=== PATIENT | female | born 1985 | race Caucasian/White ===

== ENCOUNTER 2016-11-30 12:01 | Inpatient (IN) | payer OTHER ==
[2016-11-28 14:35] LABS: HCT 44.9 % (37.0-47.0); HGB 14.7 g/dl (12.5-16.0); MCH 28.1 pg (25.0-31.0); MCHC 32.7 g/dL (32.0-36.0); MCV 85.7 fL (78.0-100.0); MPV 10.1 fL (6.0-9.5); RBC 5.24 M/uL (4.20-5.40); RDW 18.7 % (11.5-14.0); WBC 4.9 K/uL (4.0-10.5)
[2016-11-28 15:27] LABS: CREATININE 0.9 mg/dL (0.5-1.0); POTASSIUM 4.5 mmol/L (3.5-5.1)
[2016-11-30 08:00] LABS: INR 1.03 (0.9-1.2); PROTHROMBIN TIME 13.1 SECONDS (11.7-14.0); PTT 29.4 SECONDS (23.2-31.4)
[2016-11-30 08:58] LABS: BILIRUBIN NEGATIVE (NEGATIVE); BLOOD NEGATIVE Ery/uL (NEGATIVE); CLARITY CLEAR (CLEAR); COLOR YELLOW (YELLOW); GLUCOSE (U) NORMAL (NORMAL); KETONE (U) NEGATIVE (NEGATIVE); LEUKOCYTES NEGATIVE Leu/uL (NEGATIVE); NITRITE NEGATIVE (NEGATIVE); PROTEIN NEGATIVE (NEGATIVE); SPECIFIC GRAVITY 1.025 (1.001-1.030); UROBILINOGEN 0.2 mg/dL (0.2-1.0)
[2016-12-01 04:08] LABS: HCT 40.1 % (37.0-47.0); HGB 12.7 g/dl (12.5-16.0); MCH 27.9 pg (25.0-31.0); MCHC 31.7 g/dL (32.0-36.0); MCV 88.1 fL (78.0-100.0); MPV 9.6 fL (6.0-9.5); RBC 4.55 M/uL (4.20-5.40); RDW 18.6 % (11.5-14.0); WBC 7.7 K/uL (4.0-10.5)
[2016-12-01 04:26] LABS: CREATININE 0.9 mg/dL (0.5-1.0); POTASSIUM 4.8 mmol/L (3.5-5.1)
[2016-12-02] MEDS ORDERED: PAXIL20 MG PO (15:40)
[2016-12-02] MEDS ORDERED: ALDACTONE100 MG PO (15:40)
[2016-12-02] MEDS ORDERED: LAMICTAL100 M1 PO (15:40)
[2016-12-02] MEDS ORDERED: WELLBUTRIN SR150 MG PO (15:40)
[2016-12-02] MEDS ORDERED: SEROQUEL50 MG PO (15:41)
[2016-12-02] MEDS ORDERED: ABILIFY15 MG PO (15:41)
[2016-12-02] MEDS ORDERED: WARFARIN SODIU7.5 MG PO (15:41)
[2016-12-02] MEDS ORDERED: SINGULAIR10 MG PO (15:41)
--- NOTE | 2016-12-02 16:00 | NUR ---
D/C INSTRUCTIONS GIVEN;PT VERBALIZED UNDERSTANDING;D/C'D FROM FACILITY.
== END 2016-12-02 16:06 | disposition home or self-care (01) | DRG 621 ==
LOC: FTCU 12:01
PROVIDERS: ADMIT Surgery
PROC: 0DJ08ZZ Inspection of Upper Intestinal Tract, Via Natural or Artificial Opening Endoscopic (ICD-10-PCS; 2016-11-30)
PROC: 0DB64Z3 Excision of Stomach, Percutaneous Endoscopic Approach, Vertical (ICD-10-PCS; principal; 2016-11-30 08:15)
DX: E66.01 Morbid (severe) obesity due to excess calories (principal); K76.0 Fatty (change of) liver, not elsewhere classified; G47.33 Obstructive sleep apnea (adult) (pediatric); Z86.718 Personal history of other venous thrombosis and embolism; Z86.711 Personal history of pulmonary embolism; Z90.710 Acquired absence of both cervix and uterus; E16.2 Hypoglycemia, unspecified; K21.9 Gastro-esophageal reflux disease without esophagitis; F41.8 Other specified anxiety disorders; Z68.42 Body mass index [BMI] 45.0-49.9, adult
CPT/HCPCS: 36415; 74240; 80048; 81003; 82150; 82962; 85610; 85730; 86850; 86900; 86901; 93005; 94010; J0131; J0690; J1100; J1170; J1885; J2405; J2704; J2710; J3010; J3411; J3475